=== PATIENT | female | born 1990 | race Two or more races ===

== ENCOUNTER 2018-06-02 10:09 | Outpatient (CLI) | payer OTHER | END 2018-06-02 10:45 | disposition home or self-care (01) | LOC: RX STUDY 10:09 | DX: N91.2 Amenorrhea, unspecified (principal); N93.8 Other specified abnormal uterine and vaginal bleeding; Q50.6 Other congenital malformations of fallopian tube and broad ligament ==

== ENCOUNTER 2022-02-13 07:58 | Outpatient (CLI) | payer OTHER | END 2022-02-13 09:30 | disposition home or self-care (01) | LOC: PRENATAL 07:58 | PROVIDERS: ATTEND Obstetrics & Gynecology Maternal & Fetal Medicine | DX: O35.9XX0 Maternal care for (suspected) fetal abnormality and damage, unspecified, not applicable or unspecified (principal); O35.3XX0 Maternal care for (suspected) damage to fetus from viral disease in mother, not applicable or unspecified; Z3A.20 20 weeks gestation of pregnancy; Z91.013 Allergy to seafood ==

== ENCOUNTER 2022-05-17 13:54 | Outpatient (CLI) | payer OTHER | END 2022-05-17 14:55 | disposition home or self-care (01) | LOC: PRENATAL 13:54 | PROVIDERS: ATTEND Obstetrics & Gynecology Maternal & Fetal Medicine | DX: O26.849 Uterine size-date discrepancy, unspecified trimester (principal); O35.9XX0 Maternal care for (suspected) fetal abnormality and damage, unspecified, not applicable or unspecified; O36.8199 Decreased fetal movements, unspecified trimester, other fetus; Z3A.33 33 weeks gestation of pregnancy ==

== ENCOUNTER 2022-06-12 09:55 | Outpatient (CLI) | payer OTHER | END 2022-06-12 11:45 | disposition home or self-care (01) | LOC: PRENATAL 09:55 | PROVIDERS: ATTEND Obstetrics & Gynecology Maternal & Fetal Medicine | DX: O26.849 Uterine size-date discrepancy, unspecified trimester (principal); O36.8199 Decreased fetal movements, unspecified trimester, other fetus; O24.419 Gestational diabetes mellitus in pregnancy, unspecified control; Z3A.38 38 weeks gestation of pregnancy ==